=== PATIENT | female | born 1930 | race Caucasian/White ===

== ENCOUNTER → 2019-01-17 | Outpatient (CLI) | payer MEDICARE, BC ==
[2014-01-12 10:55] VITALS: BP 187/70
[~2019-01-17] MED LIST: CALCIUM 1200 W/1 SGL PO; LOTEMAX 5 ML 5 M5 ML OD; LOTENSIN10 MG PO; RITE AID ASPIRI81 M1 PO; SYNTHROID0.1 MG PO
== END ==
LOC: RAD 12:41
DX: M47.817 Spondylosis without myelopathy or radiculopathy, lumbosacral region (principal); M43.17 Spondylolisthesis, lumbosacral region; M48.062 Spinal stenosis, lumbar region with neurogenic claudication

== ENCOUNTER → 2019-01-19 | Outpatient (CLI) | payer MEDICARE, BC ==
[2014-01-12 10:55] VITALS: BP 187/70
== END ==
LOC: RAD 07:37
DX: M48.062 Spinal stenosis, lumbar region with neurogenic claudication (principal); M48.07 Spinal stenosis, lumbosacral region

== ENCOUNTER → 2020-10-08 | Outpatient (CLI) | payer MEDICARE, BC ==
[2014-01-12 10:55] VITALS: BP 187/70
== END ==
LOC: RAD 10:23
DX: M25.512 Pain in left shoulder (principal)

== ENCOUNTER → 2020-10-09 | Outpatient (CLI) | payer MEDICARE, BC ==
[2014-01-12 10:55] VITALS: BP 187/70
== END ==
LOC: RAD 06:55
DX: M75.112 Incomplete rotator cuff tear or rupture of left shoulder, not specified as traumatic (principal)